=== PATIENT | male | born 1990 | race African-American/Black ===

== ENCOUNTER 2017-07-04 15:50 | Emergency (ER) | payer BC, OTHER ==
[~2017-07-04] VITALS: Ht 172.7 cm; Wt 69.0 kg
[~2017-07-04 15:50] MED LIST: NAPROSYN500 MG PO; NOHOMEMEDICATIONS; PHENERGAN 25 MG25 M1 PO; TRAMADOL 50 MG50 MG PO; ZANTAC 150MG T150 MG PO; ZOFRAN ODT4 MG PO
[2017-07-04] MEDS ORDERED: NAPROSYN500 MG PO (16:16)
== END 2017-07-04 16:24 | disposition home or self-care (01) ==
LOC: ER 15:50
DX: S86.912A Strain of unspecified muscle(s) and tendon(s) at lower leg level, left leg, initial encounter (principal); G56.22 Lesion of ulnar nerve, left upper limb; W10.9XXA Fall (on) (from) unspecified stairs and steps, initial encounter; Y93.89 Activity, other specified; Y92.89 Other specified places as the place of occurrence of the external cause; Y99.8 Other external cause status

== ENCOUNTER 2019-12-22 06:50 | Emergency (ER) | payer BC, OTHER ==
[~2019-12-22] VITALS: Ht 172.7 cm; Wt 68.0 kg
[2019-12-22 06:55] VITALS: BP 100/63
[2019-12-22] MEDS ORDERED: NAPROXEN SODIU220 M2 PO (07:14)
[2019-12-22] MEDS ORDERED: NORFLEX100 MG PO (07:14)
[2019-12-22] MEDS ORDERED: PROTONIX40 M2 PO (07:19)
== END 2019-12-22 07:22 | disposition home or self-care (01) ==
LOC: ER 06:50
DX: S29.012A Strain of muscle and tendon of back wall of thorax, initial encounter (principal); X50.1XXA Overexertion from prolonged static or awkward postures, initial encounter; Y93.89 Activity, other specified; Y92.89 Other specified places as the place of occurrence of the external cause; Y99.9 Unspecified external cause status

== ENCOUNTER → 2020-06-26 | Outpatient (CLI) | payer BC, OTHER ==
[~2020-06-26] MED LIST changes: +NAPROXEN SODIU220 M2 PO; +NORFLEX100 MG PO; +PROTONIX40 M2 PO
== END ==
LOC: LAB 08:47
PROVIDERS: ATTEND Neuromusculoskeletal Medicine & OMM
DX: R05 Cough (principal); M79.10 Myalgia, unspecified site; Z20.822 Contact with and (suspected) exposure to COVID-19

== ENCOUNTER 2020-07-13 16:44 | Emergency (ER) | payer BC, OTHER ==
[~2020-07-13] VITALS: Ht 172.7 cm; Wt 65.8 kg
[2020-07-13 17:20] LABS: ABSOLUTE NEUTROPHILS 7.8 thou/uL (1.4-8.2); BASOPHILS 0.7 % (0.0-2.0); EOSINOPHILS 0.8 % (0.0-3.0); HEMATOCRIT 43.1 % (42.0-52.0); MCH 27.8 pg (26.0-34.0); MCHC 32.5 g/dL (28.0-37.0); MCV 85.4 fL (80.0-100.0); MONOCYTES 11.6 % (1.0-8.0); PLATELET COUNT 265 thou/uL (150-400); POLYS 64.9 % (36.0-66.0); RBC 5.05 mil/uL (4.50-6.00); RDW 14.2 % (10.5-14.5)
[2020-07-13 17:28] LABS: CALCIUM 9.9 mg/dL (8.5-10.1); CREATININE 1.3 mg/dL (0.7-1.3)
[2020-07-13] MEDS ORDERED: FLEXERIL PO (18:15)
[2020-07-13 18:52] VITALS: BP 123/73
--- NOTE | 2020-07-15 10:24 | EKG ---
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1990 Requested By: Devin Storey Order Number: [id number] MD: Alpesh Dooley Measurements Intervals [place] Rate: 60 P: 79 NV: 156 QRS: 81 QRSD: 83 T: 74 QT: 400 QTc: 400 Interpretive Statements Sinus rhythm Compared to ECG 03/18/2017 19:47:05 Sinus tachycardia no longer present Left ventricular hypertrophy no longer present ST (T wave) deviation no longer present Electronically Signed On 07-15-2020 10:24:19 DRIVER SERVICE TECHNICIAN by Alpesh Dooley [email or web address] <ELECTRONICALLY SIGNED> By: Alpesh Dooley MD, [facility] 07/15/20 [id number] Alpesh Dooley MD, FAC /EPI
== END 2020-07-13 18:52 | disposition home or self-care (01) ==
LOC: ER 16:44
PROVIDERS: Emergency Medicine
DX: S39.012A Strain of muscle, fascia and tendon of lower back, initial encounter (principal); S80.01XA Contusion of right knee, initial encounter; M54.6 Pain in thoracic spine; M54.2 Cervicalgia; R07.89 Other chest pain; R55 Syncope and collapse; R51.9 Headache, unspecified; V49.49XA Driver injured in collision with other motor vehicles in traffic accident, initial encounter; Y93.I9 Activity, other involving external motion; Y92.488 Other paved roadways as the place of occurrence of the external cause; Y99.8 Other external cause status

== ENCOUNTER 2020-11-26 12:59 | Emergency (ER) | payer BC, OTHER ==
[~2020-11-26] VITALS: Ht 172.7 cm; Wt 70.3 kg
[~2020-11-26 12:59] MED LIST changes: +FLEXERIL PO
[2020-11-26 13:02] VITALS: BP 105/87
[2020-11-26 13:40] LABS: URINE BILIRUBIN NEGATIVE (Negative); URINE BLOOD NEGATIVE (Negative); URINE CLARITY CLEAR; URINE COLOR YELLOW; URINE GLUCOSE-RANDOM* NEGATIVE (Negative); URINE KETONES NEGATIVE (Negative); URINE LEUKOCYTES-REFLEX NEGATIVE (Negative); URINE NITRITE-REFLEX NEGATIVE (Negative); URINE PROTEIN (DIPSTICK) NEGATIVE (Negative); URINE UROBILINOGEN 0.2 E.U./dl (0.2-1.0)
[2020-11-26] MEDS ORDERED: DOXYCYCLINE 10100 MG PO (15:59)
== END 2020-11-26 16:09 | disposition home or self-care (01) ==
LOC: ER 12:59
PROVIDERS: Emergency Medicine
DX: N45.1 Epididymitis (principal)